=== PATIENT | male | born 1950 | race Caucasian/White ===

== ENCOUNTER 2017-02-09 08:32 | Day surgery (SDC) | payer OTHER, MEDICARE ==
[~2017-02-09] VITALS: Ht 177.8 cm; Wt 118.0 kg
[2017-02-09] VITALS (8 sets, daily range): BP systolic 121–158; BP diastolic 74–82; PULSE 61–86; RESP 18–20; TEMP 97.5–98.7; O2SAT 94–98
[2017-02-09] MEDS ORDERED: METO50TA PO (09:14)
[2017-02-09] MEDS ORDERED: TH GCAP (09:14)
[2017-02-09] MEDS ORDERED: ASPI81TA5 PO (09:14)
[2017-02-09] MEDS ORDERED: CO Q10CA (09:14)
[2017-02-09] MEDS ORDERED: LISI2.5T3 PO (09:14)
[2017-02-09] MEDS ORDERED: ATOR1TAB18 PO (09:14)
[2017-02-09] MEDS ORDERED: METF1000 PO (09:14)
[2017-02-09] MEDS ORDERED: MULT1TAB46 (09:15)
[2017-02-09] MEDS ORDERED: PIOG15TA5 PO (09:15)
[2017-02-09] MEDS ORDERED: CHEL50TA (09:15)
[2017-02-09] MEDS ORDERED: OMEGCAP19 (09:15)
[2017-02-09] MEDS ORDERED: METOPROLOL TARTRATE 25 MG TAB PO PRN (09:30)
[2017-02-09] MEDS ORDERED: CHLORHEXIDINE GLUCONATE 2 % 1 PACK (2 CLOTHS) TOPICAL SCH (09:30)
[2017-02-09] MEDS ORDERED: LACTATED RINGER'S 1000 ML IV PRN (09:30)
[2017-02-09] MEDS ORDERED: VANCOMYCIN 1000 MG/NS 250 ML IV SCH ×2 (09:30)
[2017-02-09] MEDS ORDERED: MUPIROCIN 2% OINT 1 APPLIC/GM SYR NASAL SCH (09:30)
[2017-02-09] MEDS ORDERED: SODIUM CHLORID 0.9% 500 ML IV PRN (09:30)
[2017-02-09] MEDS ORDERED: CHLORHEXIDINE GLUCONATE 2 % 1 PACK (2 CLOTHS) TOPICAL PRN (09:30)
[2017-02-09] MEDS ORDERED: POVIDONE IODINE 5% (ANTISEPSIS KIT) 4 APPLICATIONS EACH NARE PRN (09:30)
[2017-02-09] MEDS ORDERED: SODIUM CHLORID 0.9% 500 ML INJ 500 ML IV SCH (09:30)
[2017-02-09] MEDS ORDERED: POVIDONE IODINE 5% (ANTISEPSIS KIT) 4 APPLICATIONS EACH NARE SCH (09:30)
[2017-02-09] MEDS ORDERED: INSULIN HUMAN REGULAR 1,000 UNITS/10 ML VIAL SQ PRN (09:30)
[2017-02-09] MEDS ORDERED: NS 1000 ML IV SCH (09:30)
[2017-02-09] MEDS ORDERED: ceFAZolin 2 GM PREMIX 50 ML IV SCH (09:30)
[2017-02-09] MEDS ORDERED: LORazepam 1 MG TAB SL SCH (09:30)
[2017-02-09 09:37] LABS: AUTOMATED NEUTROPHIL # 2.4 TH/MM3 (1.8-7.7); BASOPHIL % 0.2 % (0.0-2.0); EOSINOPHIL % 0.8 % (0.0-4.0); HEMATOCRIT 38.7 % (39.0-51.0); HEMO FLAGS DIFF FINAL; LYMPH % 53.1 % (9.0-44.0); MEAN CELL VOLUME 95.3 FL (80.0-100.0); MEAN CORPUSCULAR HEMOGLOBIN 32.5 PG (27.0-34.0); MEAN CORPUSCULAR HGB CONC 34.1 % (32.0-36.0); MONO % 4.1 % (0.0-8.0); NEUT % 41.8 % (16.0-70.0); PLATELET COUNT 123 TH/MM3 (150-450); RED BLOOD COUNT 4.06 MIL/MM3 (4.50-5.90); RED CELL DISTRIBUTION WIDTH 14.7 % (11.6-17.2); WHITE BLOOD COUNT 5.7 TH/MM3 (4.0-11.0)
[2017-02-09 09:56] LABS: BICARBONATE 24.3 MEQ/L (21.0-32.0); POTASSIUM 3.7 MEQ/L (3.5-5.1)
[2017-02-09 11:00] LABS: APTT (PATIENT) 25.7 SEC (24.3-30.1); PROTHROMBIN TIME - PATIENT 11.1 SEC (9.8-11.6)
[2017-02-09] MEDS ORDERED: SODIUM CHLOR 0.9% 250 ML INJ 250 ML ONE (15:00)
[2017-02-09] MEDS ORDERED: ISOPROTERENOL HCL 1 MG/5 ML AMP ONE (15:00)
[2017-02-09] MEDS ORDERED: VANCOMYCIN 500 MG VIAL ONE (15:20)
[2017-02-09] MEDS ORDERED: VANCOMYCIN HCL 1000 MG VIAL ONE (15:20)
[2017-02-09] MEDS ORDERED: ceFAZolin INJ 1,000 MG VIAL ONE ×2 (15:21→15:23)
[2017-02-09] MEDS ORDERED: LIDOCAINE HCL 2% 50 ML VIAL ONE (15:21)
[2017-02-09] MEDS ORDERED: PROPOFOL 200 MG/20 ML AMP IV ONE (15:39)
--- NOTE | 2017-02-09 16:19 | CATHPROC ---
Daily Secret HIS Report Study Information Study Number Admission Scheduled Start Study Start 1028-17 02/09/2017 02/09/2017 Feb 09 2017 2:00PM Referring Institution Admit Source Facility Department 1 Other [facility] Returned Item Clerk Physician and Clinical Staff Initial Joan Fatima Eligibility Consultant Florence Villalobos,RT(R) TECH2 Other Anesthesia, POOL MANAGER Recorder Almita Mancini,RN Recorder Logan Nguyen,RT(R) Scrub Nalini Glover,MEDICAL AND SCIENTIFIC ILLUSTRATOR TECH2 Procedures Performed Procedure Lead Insertion Equipment Time Lunchroom Supervisor Description Size Mfg Part Number Used/Scraped DERMABOND, ADHESIVE SKIN [id number] 15:29 CORDIS/PACER * Used GLUE MINI *[id number] 15:29 MEDLINE IND[employer] SUTURE, STRIP PLUS 1/2" * Used *[id number] 15:29 MEDLINE PACER BECKHAM, LIMB * 2530 Used [id number] 15:29 MEDLINE PACER PACK, PACER CUSTOM * Used *[id number] 15:29 [employer] PACER SAFE SHEATH, FR7, 13CM FR 7 [id number] Used 15:29 [employer] PACER SAFE SHEATH, FR7, 13CM FR 7 [id number] Used 15:32 Needle Sponge Count 2 22 Used 15:32 Needle Sponge Count 20 200 Used 15:32 Needle Sponge Count 3 3 Used SUTURE, 0 ETHIBOND [CT1] (CX21D), 8pk SUTURE, 2-0 VICRYL [CT1] ([id number]) SUTURE, 2-0 VICRYL [CT1] ([id number]) [id number] 15:29 [employer],WARM AIR CCL * Used *[id number] [facility] PAD, ELECTROSURGICAL 15:29 * [id number] Used SURGICAL GROUNDING ORANGE LEAD, CAPSURE FIX NOVUS, 4076-52CM 15:49 VITATRON [employer] 52CM Used 52CM *[id number] LEAD, CAPSURE FIX NOVUS, 4076-58CM 15:46 VITATRON [employer] 58CM Used 58CM *[id number] PACEMAKER, ADVISA MRI 15:53 VIT[employer]RON [employer] OEA-DDDR [id number] Used SURESCAN 15:29 [employer]AH. ELECTRODE, PRO-PADZ BIPHASIC * [id number] Used Equipment Model, Serial, Lot Number and Expiration Data Description Model Number Serial Number Lot Number Expiration Date LEAD, CAPSURE FIX NOVUS, 52CM 4076-52 [id number] 10-23-2018 LEAD, CAPSURE FIX NOVUS, 58CM 4076-58 [id number] 06-12-2017 PACEMAKER, ADVISA DR GRIFFITH [id number] 06-26-2018 SURESCAN Medication Medication Total Dose (Bolus/Oral) Medication Total Dosage/Unit 2% XYLOCAINE 50 mL Medications (Bolus/Oral) Medication Time Given Dosage/Unit Administered By Reason 2% XYLOCAINE 02/09/2017 3:40:00 PM 50 mL Joan Hernandez 50 mL 2% XYLOCAINE given in lab by Joan Hernandez in Left upper chest via Subcutaneous. Ordered by Joan Gibbs. Medication (Drip) Medication Time Given Dosage/Unit Concentration/Unit Diluent (ml) Solution ANCEF 02/09/2017 3:25:26 PM 1 g 1 g ANCEF given in lab by Anesthesia, POOL MANAGER via Peripheral IV. Ordered by Joan Hernandez. Reason: As pe r physicians verbal order. VANCOMYCIN DRIP 02/09/2017 3:23:38 PM 1 g 1 g VANCOMYCIN DRIP given by Anesthesia, POOL MANAGER via Peripheral IV. Ordered by Joan Hernandez. Reason: As per physicians verbal order. Final Case Assessment Cardiovascular HR Rhythm NIBP Chest Pain 89 evp managing director 164/74 0 Edema Present Skin color Skin None Normal Warm Dry Circulatory - Right Pulses Dorsalis Pedis 3 Scale (0,1,2,3,4,d) Circulatory - Left Pulses Dorsalis Pedis 3 Scale (0,1,2,3,4,d) Circulatory - Lower Extremities Color Lower Right Color Lower Left Normal Normal Neurological State Oriented to time-place- Alert Moves all extremities person Respiration - General Respiration Rate SpO2 (%) (B/min) 20 98 Chronological Log Time Study Chronological Log 15:15:29 Anesthesia remains at bedside. Assuming care of patient. 15:15:40 NOTE: This patient is undergoing an additional procedure while still in the Cardiac Cath L ab. 15:15:49 Ep study finished and setting up for PM 15:17:10 Disposable Defibrillator Pads Remain On Patient. 15:17:11 Bovie ground pad applied to:right hip 15:17:20 2% CHLORHEXIDINE GLUCONATE WASH AND NASAL SWIPE DONE PRIOR TO PROCEDURE. 1 g VANCOMYCIN DRIP given by Anesthesia, POOL MANAGER via Peripheral IV. Ordered by Joan Hernandez. Reas on: As per 15:23:38 physicians verbal order. 1 g ANCEF given in lab by Anesthesia, POOL MANAGER via Peripheral IV. Ordered by Joan Hernandez. Reason: As per physicians 15:25:26 verbal order. First Sponge And Instrument Count Done by Nalini Glover, MEDICAL AND SCIENTIFIC ILLUSTRATOR TECH2. 15:26:50 Hypo's: 3, Sponges: 20, Bovie/scratch: 2 Sutures: 10, Blades: 1, Instruments: 26, Syveck Patches: 0 Verified w DB. Time Out. Correct patient, procedure, procedure equipment, site and side verified with physicia n present. Time 15:39:00 concurred by MD, individual staff and POOL MANAGER. Time Out #2 - Consents verified, patient in correct position, all results are labled and displa yed, safety precautions 15:39:24 taken, antibiotics administered. Time out concurred by MD, individual staff and POOL MANAGER in procedu re 15:39:40 Case Start 15:40:00 50 mL 2% XYLOCAINE given in lab by Joan Hernandez in Left upper chest via Subcutaneous. Orde red by Joan Hernandez. 15:40:17 Reference ECG taken 15:42:15 Vascular access was obtained in the Subclav Vein (Lft.) 15:44:00 Wire inserted 15:45:06 Surgical Incision Made. 15:47:18 A pocket was created at the L Upper Chest. 15:47:30 A SAFE SHEATH, FR7, 13CM FR 7 was advanced into the Subclav. Vein Lft using the Modified Se zacarias technique. 15:49:28 A LEAD, CAPSURE FIX NOVUS, 58CM 58CM was inserted and positioned in the RV. 15:49:40 Lead placement verified under fluoroscopy 15:49:45 The RV lead impedance and threshold being tested. 15:49:56 The RV lead was sutured to the fascia. 15:50:21 A SAFE SHEATH, FR7, 13CM FR 7 was advanced into the Subclav. Vein (Lft using the Modified Heron reynoso technique. 15:51:55 A LEAD, CAPSURE FIX NOVUS, 52CM 52CM was inserted and positioned in the RA. 15:52:03 Lead placement verified under fluoroscopy 15:52:15 The Atrial lead impedance and threshold is being tested. 15:54:01 The Atrial lead was sutured to the fascia. 15:58:48 Pocket flushed with antibiotic solution 16:01:49 A PACEMAKER, APRYL CHENA-DDDR was connected and placed in the pocket. Second Sponge And Instrument Count Done by Nalini Glover, MEDICAL AND SCIENTIFIC ILLUSTRATOR TECH2. 16:03:32 Hypo's: 3, Sponges: 20, Bovie/scratch: 2 Sutures: 10, Blades: 1, Instruments: 26, Syveck Patches: 0 Verified w DB. 16:09:46 The pocket was closed. Final Sponge And Instrument Count Done by Nalini Glover, MEDICAL AND SCIENTIFIC ILLUSTRATOR TECH2. 16:09:59 Hypo's: 3, Sponges: 20, Bovie/scratch: 2 Sutures: 10, Blades: 1, Instruments: 26, Syveck Patches: 0 Verified w DB. 16:10:27 Implant Procedure was performed. 16:10:31 A PPM Implant . (Dual) 16:11:08 Steri-strips and a sterile dressing applied to site. 16:11:44 DOCU called. Spoke to ABIDA. 16:11:57 Bedside Report will be given. 16:11:59 Case End 16:12:07 A sling was placed on the affected arm. 16:12:18 Sheath(s) to groins left in place, sutured, 0.9ns kvo connected and will be removed in [facility] 16:12:45 No case complications noted. 16:12:46 Cine recording checked. Assessment: Final Case, HR=89 BPM, Rhythm=evp managing director, KNYW=812/74 mmhg, Chest Pain=0, Edema=None, [place] r=Normal, Skin = Warm, Dry Right Pulses: Tim Ped=3 Left Pulses: Tim Ped=3 16:14:35 Lower Right Extremities: Color=Normal Lower Left Extremities: Color=Normal Neurological: State=Alert, Ox3, WOO Respiration: Resp=20 B/min, SpO2=98 % 16:18:48 CICU called. Spoke to Esha. Aware of sheaths present Edda bass for sheath pull. 16:19:16 Bedside Report will be given. 16:20:51 Patient moved to stretcher End Study - Contrast Media Used In Study Contrast Total Opened (mL) Total Used (mL) Total Wasted (mL) Unspecified 0 0 0 End Study - Radiation Exposure Fluoro Time (minutes) 5.7 End Study - Patient Disposition Complications Transferred To Interventional Outcome No Telemetry Bed successful
--- NOTE | 2017-02-09 16:40 | PD.CARD ---
DUAL PPM IMPLANTATION PROCEDURE DATE: February 09, 2017 DUAL PPM IMPLANTATION PROCEDURE: Dual chamber permanent pacemaker implantation. INDICATIONS FOR PROCEDURE: Mr. Amezcua is a 66 -year-old male with hx of near syncope, trifascicular block, HV over 94 ms, infraHIs disease who undergo pacer insertion. The risks, the nature and the benefit of the procedure were clearly stated to him . The risks include pneumothorax, cardiac perforation, stroke and even . He understood and agreed to proceed. PROCEDURE As written informed consent was obtained prior to the electrophysiology study, the patient was transferred to the EP lab where he was prepped and draped in the usual sterile fashion. Conscious sedation was initiated and maintained throughout the procedure by the anesthesiologist. Once sedation was verified, the left infraclavicular area was with 2% Xylocaine. Using modified Seldinger technique, the left subclavian vein was cannulated on two occasions and two guidewires were advanced. Then, using a #11 blade scalpel, a 2 cm was made two fingerbreadths below the left clavicle. This incision was then taken down through the deep fascial layer using Bovie cautery and blunt dissection. Into the inferomedial direction, device pocket was dissected, then the wire was dissected into the pocket. A 2-0 Vicryl suture was placed around the wire to prevent backbleeding. At this point, over the lateral wire, an 7-Citizen [place] dilator and introducer was advanced. As the dilator and wire were removed, an active fixation right ventricular pacing and sensing lead was advanced. After adequate pacing and sensing thresholds were obtained, the lead was secured in the pocket using 2-0 Ethibond suture. Then, over the remaining wire, an 7-[place] dilator and introducer was advanced. As the dilator and wire were removed, an active fixation right atrial pacing and sensing lead was advanced. After adequate pacing and sensing thresholds were obtained, the lead was secured into the pocket using 2-0 Ethibond suture. At that point, the pocket was copiously irrigated using antibiotic solution. This was connected to the generator and placed into the pocket. I did proceed with wound closure. The deep fascial layer was approximated using 2-0 Vicryl suture in a continuous fashion. The subcutaneous layer was approximated with 2-0 Vicryl suture in a continuous fashion. The subcuticular layer was approximated with 2-0 Vicryl suture in a continuous fashion. Dermabond adhesive was applied to the wound followed by sterile pressure dressing. There was no complication. The patient tolerated procedure. Blood loss minimal. IMPLANTED HARDWARE The permanent pacemaker is a Medtronic. Model # A2DR01 serial number [id number]. The right atrial pacing and sensing lead is a Medtronic model number 4076-52, serial number [id number]. The right ventricular pacing and sensing lead is a Medtronic model number 4076- 58, serial number [id number]. THRESHOLDS The right atrial pacing threshold in the bipolar mode was 1.1 @ 0.4 milliseconds, lead impedance 645 ohms and P-wave at 1.2 millivolts. The right ventricular pacing threshold in the bipolar mode was 1.3V @ 0.4 milliseconds, lead impedance 1280 ohms and R-wave at the 8.0 millivolts. SETTINGS The device was set in the DDD50, upper limit 120 beats per minute. Hysteresis and mode switch are on. CONCLUSIONS: Successful permanent pacemaker implantation, COMMENT AND RECOMMENDATION The patient will be transferred to the telemetry unit. He will be observed. When stable, he can be discharged home. Joan Hernandez MD February 09, 2017 16:40
--- NOTE | 2017-02-09 18:22 | MA ---
cc: KEVIN WALKER M.D. DATE: 02/09/2017 Electrophysiology study, CS cannulation, repeat electrophysiology study on Isuprel infusion. INDICATION Mr. Amezcua is a 66-year-old gentleman, trifascicular block, episode of near syncope, referred for electrophysiology study and possible device insertion. The risks, the nature and the benefit of the procedure are clearly stated to him. The risks include pneumothorax, cardiac perforation, stroke, need for open heart surgery and even . He understood and agreed to proceed. PROCEDURE DETAILS After written informed consent was obtained, the patient was brought to the EP lab where he was prepped and draped in the usual sterile fashion. Conscious sedation was initiated and maintained throughout the procedure by anesthesiologist. Once sedation verified, the right inguinal area was anesthetized with 2% Xylocaine. Using modified Seldinger technique, the right femoral vein was cannulated on four occasions and four guidewires were advanced. Over the wires three 5 and a 6-Bulgarian Hemaquet were advanced. Then under fluoroscopic guidance through the 5 and 6-Bulgarian Hemaquets, four 5-Bulgarian Jacek curved quadripolar electrophysiology catheters were advanced and positioned on the His, upper right atrium, coronary sinus and right ventricular apex. Basic interval was measured. HV was around 94 sometime 96 milliseconds. It was prolonged. There was infra His disease. Then atrial pacing protocol was performed. Wenckebach was around 550 milliseconds. Then ventricular pacing protocol was performed. There was VA conduction. No tachyarrhythmia was induced. Then Isuprel was initiated. Atrial pacing protocol was repeated again, no tachyarrhythmia was induced. At that point the procedure was complete. All catheters removed. The patient has trifascicular block, HV around 94-96 milliseconds. He has near-syncope. 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 He will need a pacemaker. He is a class I indication. The patient's case already discussed with the patient before EP study. IMPRESSION 1. Electrocardiogram. At baseline the patient was in sinus. Postprocedure electrocardiogram was unchanged. 2. Basic interval. Basic cycle length was around 780, AH was around 80 and HV was around 94-96 milliseconds. 3. Atrial pacing protocol. Wenckebach of the node at baseline was around 550 milliseconds. 4. No tachyarrhythmia was induced. 5. Ventricular pacing protocol. No tachyarrhythmia was induced. CONCLUSION 1. 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 2. Negative electrophysiology study for supra and ventricular tachyarrhythmia. COMMENT AND RECOMMENDATIONS As mentioned before the patient is going to be kept on the table and a dual-chamber permanent pacemaker will be implanted. MD DREW Gregory/LORRAINE /4:44 PM /6:12 PM
[2017-02-09] MEDS ORDERED: oxyCODONE/ACETAMINOPHEN 5 MG/325 MG TAB PO PRN ×2 (18:45)
[2017-02-09] MEDS ORDERED: LIDOCAINE HCL 1% 50 ML VIAL INFIL PRN (18:45)
[2017-02-09] MEDS ORDERED: ONDANSETRON HCL 4 MG/2 ML VIAL IV PRN (18:45)
[2017-02-09] MEDS ORDERED: ATROPINE SULFATE 1 MG/ML VIAL IV PRN (18:45)
[2017-02-09] MEDS ORDERED: METOCLOPRAMIDE HCL 10 MG/2 ML VIAL IV PRN (18:45)
[2017-02-09] MEDS ORDERED: SODIUM CHLOR 0.9% 250 ML INJ 250 ML IV PRN (18:45)
[2017-02-09] MEDS ORDERED: LORazepam 2 MG/ML VIAL IV PRN (18:45)
[2017-02-09] MEDS ORDERED: BACITRACIN OINT 0.9 GM PKT TOP ONE (18:45)
--- NOTE | 2017-02-09 20:04 | RADRPT ---
EXAM DATE/TIME: 02/09/2017 19:27 [place] COMPARISON: No previous studies available for comparison. INDICATIONS : Status post pacemaker MEDICAL HISTORY : Hypertension. Diabetes. SURGICAL HISTORY : Coronary artery stent. Pacemaker. ENCOUNTER: Initial ACUITY: 1 day PAIN SCORE: 3/10 LOCATION: Bilateral chest FINDINGS: A single portable frontal view of the chest shows a left-sided pacing device. Leads are somewhat obsc ured by the penetration of the film. They are felt to terminate in the region of the right atrium and right ventricle respectively. No pneumothorax. Heart is normal in size. No infiltrate or effusion. CONCLUSION: Left-sided pacing device. No pneumothorax. Van Parham Jr., MD on February 09, 2017 at 20:01 Board Certified Radiologist. This report was verified electronically.
[2017-02-09] MEDS ORDERED: ATORVASTATIN 80 MG TAB PO SCH (21:00)
[2017-02-10] VITALS (10 sets, daily range): BP systolic 124–129; BP diastolic 65–88; PULSE 62–80; RESP 18; TEMP 97.9–98.1; O2SAT 94
[2017-02-10] MEDS: ceFAZolin 2 GM PREMIX 50 ML IV SCH ×2 (00:17→08:00)
[2017-02-10 06:44] LABS: APTT (PATIENT) 26.4 SEC (24.3-30.1)
[2017-02-10] MEDS ORDERED: CEPH-459 PO (07:51)
[2017-02-10] MEDS ORDERED: LISI10TA3 PO (07:51)
[2017-02-10] MEDS ORDERED: METO-309 PO (07:51)
--- NOTE | 2017-02-10 08:03 | PD.CARD.PN ---
Subjective Subjective Remarks Feels okay. Objective Medications Current Medications Medications (Trade) Dose Ordered Sig/Yogi Route Start Time Stop Time Status Last Admin Lactated Ringer's 1,000 ml @ 30 mls/hr Q24H PRN IV 02/09/17 09:30 02/12/17 09:29 Sodium Chloride 500 ml @ 30 mls/hr [id number] PRN IV 02/09/17 09:30 02/12/17 09:29 Sodium Chloride 500 ml @ 30 mls/hr [id number] IV 02/09/17 09:30 (NS 1000 ml Inj) 1,000 ml @ 30 mls/hr Q24H IV 02/09/17 09:30 (Percocet 5-325 Mg) 1 tab Q4H PRN PO 02/09/17 18:45 02/09/17 21:16 (Percocet 5-325 Mg) 2 tab Q4H PRN PO 02/09/17 18:45 (Ativan Inj) 0.5 mg UNSCH PRN IV 02/09/17 18:45 02/10/17 18:44 Atropine Sulfate 0.5 mg 0.5 mg UNSCH PRN IV 02/09/17 18:45 (NS 250 ml Inj) 250 ml @ 500 mls/hr ONCE PRN IV 02/09/17 18:45 02/10/17 18:44 (Reglan Inj) 10 mg Q4H PRN IV 02/09/17 18:45 (Zofran Inj) 4 mg Q4H PRN IV 02/09/17 18:45 Lidocaine HCl 10 ml 10 ml UNSCH PRN INFIL 02/09/17 18:45 02/10/17 18:44 (Ancef 2 Gm Premix) 50 ml @ 100 mls/hr Q8H IV 02/10/17 00:00 02/10/17 16:29 02/10/17 00:17 (Ecotrin Ec) 81 mg DAILY PO 02/10/17 09:00 (Lipitor) 80 mg HS PO 02/09/17 21:00 02/09/17 21:16 (Glucophage) 1,000 mg DAILY PO 02/10/17 09:00 (Actos) 15 mg DAILY PO 02/10/17 09:00 (Lopressor) 100 mg DAILY PO 02/10/17 09:00 (Prinivil) 10 mg DAILY PO 02/10/17 09:00 Vital Signs / I&O Vital Signs Date Time Temp Pulse Resp B/P Pulse Ox O2 Delivery O2 Flow Rate FiO2 02/10/17 05:04 70 02/10/17 04:00 75 02/10/17 03:00 98.1 76 18 129/65 94 02/10/17 03:00 62 02/10/17 02:00 80 02/10/17 01:19 66 02/10/17 00:00 70 02/09/17 23:00 98.6 69 18 156/74 94 02/09/17 23:00 62 02/09/17 22:58 18 02/09/17 22:00 64 02/09/17 21:00 86 02/09/17 20:00 66 02/09/17 19:00 98.3 68 20 151/80 96 02/09/17 19:00 68 02/09/17 18:00 71 02/09/17 17:51 97.5 69 18 121/81 98 02/09/17 17:51 61 02/09/17 09:12 98.7 63 18 158/82 96 I/O 02/09/17 02/09/17 02/09/17 02/10/17 02/10/17 02/10/17 07:00 15:00 23:00 07:00 15:00 23:00 Intake Total 530 ml Output Total 450 ml Balance 80 ml Intake Oral 480 ml IV Total 50 ml Output Urine Total 450 ml # Voids 1 Physical Exam GENERAL: Well-nourished, well-developed patient. SKIN: Warm and dry. Incision clean, dry and intact. HEAD: Normocephalic. EYES: No scleral icterus. No injection or drainage. NECK: Supple, trachea midline. No JVD or lymphadenopathy. CARDIOVASCULAR: Regular rate and rhythm without murmurs, gallops, or rubs. RESPIRATORY: Breath sounds equal bilaterally. No accessory muscle use. GASTROINTESTINAL: Abdomen soft, non-tender, nondistended. EXTREMITIES: No cyanosis, or edema. NEUROLOGICAL: Awake, alert, and oriented x 3. Non-focal. Laboratory Laboratory Tests Test 02/09/17 02/09/17 02/10/17 09:15 09:50 05:19 White Blood Count 5.7 TH/MM3 Red Blood Count 4.06 MIL/MM3 Hemoglobin 13.2 GM/DL Hematocrit 38.7 % Mean Corpuscular Volume 95.3 FL Mean Corpuscular Hemoglobin 32.5 PG Mean Corpuscular Hemoglobin 34.1 % Concent Red Cell Distribution Width 14.7 % Platelet Count 123 TH/MM3 Mean Platelet Volume 7.8 FL Neutrophils (%) (Auto) 41.8 % Lymphocytes (%) (Auto) 53.1 % Monocytes (%) (Auto) 4.1 % Eosinophils (%) (Auto) 0.8 % Basophils (%) (Auto) 0.2 % Neutrophils # (Auto) 2.4 TH/MM3 Lymphocytes # (Auto) 3.0 TH/MM3 Monocytes # (Auto) 0.2 TH/MM3 Eosinophils # (Auto) 0.0 TH/MM3 Basophils # (Auto) 0.0 TH/MM3 CBC Comment DIFF FINAL Differential Comment Sodium Level 142 MEQ/L Potassium Level 3.7 MEQ/L Chloride Level 106 MEQ/L Carbon Dioxide Level 24.3 MEQ/L Anion Gap 12 MEQ/L Blood Urea Nitrogen 16 MG/DL Creatinine 1.03 MG/DL Estimat Glomerular Filtration 72 ML/MIN Rate Random Glucose 126 MG/DL Calcium Level 9.1 MG/DL Blood Type O POSITIVE Antibody Screen NEGATIVE Blood Bank Comment Prothrombin Time 11.1 SEC 11.0 SEC Prothromb Time International 1.0 RATIO 1.0 RATIO Ratio Activated Partial 25.7 SEC 26.4 SEC Thromboplast Time Imaging Last Impressions Chest X-Ray 02/09/17 0000 Signed Impressions: Service Date/Time: Thursday, February 09, 2017 19:27 - CONCLUSION: Left-sided pacing device. No pneumothorax. Van Parham Jr., MD Assessment and Plan Problem List: (1) Bradycardia Assessment and Plan: Symptomatic with positive EPS. (2) S/P cardiac pacemaker procedure Assessment and Plan: Pacing appropriately, CXR negative for pneumothorax. Incision stable. Discharge home, follow-up with Dr. WALKER in 2 weeks per my discussion with him. Becky Vasques February 10, 2017 08:03
--- NOTE | 2017-02-10 08:55 | EKG ---
Date Performed: 02/10/2017 Time Performed: 00:29:46 PTAGE: 66 years EKG: Sinus rhythm with 1st degree A-V block Left axis deviation RBBB with left anterior fascicular block Anterior infa rct - age undetermined Abnormal ECG PREVIOUS TRACING : 02/09/2017 20.18 DOCTOR: Kane Woodard Interpretating Date/Time 02/10/2017 08:53:27
[2017-02-10] MEDS ORDERED: NON-FORMULARY DRUG (Lisinopril 2.5 MG) PO SCH (09:00)
[2017-02-10] MEDS ORDERED: METOPROLOL TARTRATE 50 MG TAB PO SCH ×2 (09:00)
[2017-02-10] MEDS ORDERED: ASPIRIN EC 81 MG TABEC PO SCH (09:00)
[2017-02-10] MEDS ORDERED: metFORMIN HCL 500 MG TAB PO SCH (09:00)
[2017-02-10] MEDS ORDERED: LISINOPRIL 10 MG TAB PO SCH (09:00)
[2017-02-10] MEDS ORDERED: PIOGLITAZONE HCL 15 MG TAB PO SCH (09:00)
--- NOTE | 2017-02-10 09:16 | EKG ---
Date Performed: 02/09/2017 Time Performed: 20:18:22 PTAGE: 66 years EKG: Sinus rhythm Left axis deviation Left bundle branch block Possible inferior infarct - age undetermined Abnormal E CG PREVIOUS TRACING : 02/09/2017 09.28 DOCTOR: Kane Woodard Interpretating Date/Time 02/10/2017 09:14:35
--- NOTE | 2017-02-10 09:45 | EKG ---
Date Performed: 02/09/2017 Time Performed: 09:28:02 PTAGE: 66 years EKG: Sinus rhythm . Left axis deviation RBBB with left anterior fascicular block Inferior and lateral ST elevation - po ssible early repolarization Abnormal ECG NO PREVIOUS TRACING DOCTOR: Kane Woodard Interpretating Date/Time 02/10/2017 09:43:48
--- NOTE | 2017-02-11 08:20 | CATHPROC ---
Access Mobile HIS Report Study Information Study Number Admission Scheduled Start Study Start 1028-17 02/09/2017 02/09/2017 Feb 09 2017 2:00PM Referring Institution Admit Source Facility Department 1 Other [facility] Supervisor Instrument Repair Physician and Clinical Staff Initial Joan Fatima Round Up Ring Hand Florence Villalobos,RT(R) TECH2 Other Anesthesia, SUPERVISOR GROUNDS Recorder Almita Mancini,RN Recorder Logan Nguyen,RT(R) Scrub Nalini Glover,CYBER SOFTWARE ENGINEER TECH2 Procedures Performed Procedure Lead Insertion Equipment Time Can Crimper Description Size Mfg Part Number Used/Scraped DERMABOND, ADHESIVE SKIN [id number] 15:29 CORDIS/PACER * Used GLUE MINI *[id number] 15:29 MEDLINE INDUSTRIES SUTURE, STRIP PLUS 1/2" * Used *[id number] 15:29 MEDLINE PACER BECKHAM, LIMB * 2530 *[id number] Used [id number] 15:29 MEDLINE PACER PACK, PACER CUSTOM * Used *[id number] 15:29 Revivn PACER SAFE SHEATH, FR7, 13CM FR 7 [id number] Used 15:29 Revivn PACER SAFE SHEATH, FR7, 13CM FR 7 [id number] Used 15:32 Needle Sponge Count 2 22 Used 15:32 Needle Sponge Count 20 200 Used 15:32 Needle Sponge Count 3 3 Used SUTURE, 0 ETHIBOND [CT1] (CX21D), 8pk SUTURE, 2-0 VICRYL [CT1] (TCH162D) SUTURE, 2-0 VICRYL [CT1] (HNV257C) [id number] 15:29 [employer],WARM AIR CCL * Used *[id number] [facility] PAD, ELECTROSURGICAL 15:29 * [id number] *[id number] Used SURGICAL GROUNDING ORANGE LEAD, CAPSURE FIX NOVUS, 4076-52CM 15:49 VITATRON [employer] 52CM Used 52CM *[id number] LEAD, CAPSURE FIX NOVUS, 4076-58CM 15:46 VITATRON MEDTRON[employer] 58CM Used 58CM *[id number] PACEMAKER, ADVISA DR MRI 15:53 VITATRON [employer] OEA-DDDR [id number] Used [employer] DevelopmentSCAN [id number] 15:29 [employer] LEAH. ELECTRODE, PRO-PADZ BIPHASIC * Used *[id number] Equipment Model, Serial, Lot Number and Expiration Data Description Model Number Serial Number Lot Number Expiration Date LEAD, CAPSURE FIX NOVUS, 52CM 4076-52 [id number] 10-23-2018 LEAD, CAPSURE FIX NOVUS, 58CM 4076-58 [id number] 06-12-2017 PACEMAKER, ADVISA DR GRIFFITH [id number] 06-26-2018 SURESCAN Medication Medication Total Dose (Bolus/Oral) Medication Total Dosage/Unit 2% XYLOCAINE 50 mL Medications (Bolus/Oral) Medication Time Given Dosage/Unit Administered By Reason 2% XYLOCAINE 02/09/2017 3:40:00 PM 50 mL Joan Hernandez 50 mL 2% XYLOCAINE given in lab by Joan Hernandez in Left upper chest via Subcutaneous. Ordered by Joan Gibbs. Medication (Drip) Medication Time Given Dosage/Unit Concentration/Unit Diluent (ml) Solution ANCEF 02/09/2017 3:25:26 PM 1 g 1 g ANCEF given in lab by Anesthesia, SUPERVISOR GROUNDS via Peripheral IV. Ordered by Joan Hernandez. Reason: As pe r physicians verbal order. VANCOMYCIN DRIP 02/09/2017 3:23:38 PM 1 g 1 g VANCOMYCIN DRIP given by Anesthesia, SUPERVISOR GROUNDS via Peripheral IV. Ordered by Joan Hernandez. Reason: As per physicians verbal order. Final Case Assessment Cardiovascular HR Rhythm NIBP Chest Pain 89 vp ad sales west 164/74 0 Edema Present Skin color Skin None Normal Warm Dry Circulatory - Right Pulses Dorsalis Pedis 3 Scale (0,1,2,3,4,d) Circulatory - Left Pulses Dorsalis Pedis 3 Scale (0,1,2,3,4,d) Circulatory - Lower Extremities Color Lower Right Color Lower Left Normal Normal Neurological State Oriented to time-place- Alert Moves all extremities person Respiration - General Respiration Rate SpO2 (%) (B/min) 20 98 Chronological Log Time Study Chronological Log 15:15:29 Anesthesia remains at bedside. Assuming care of patient. 15:15:40 NOTE: This patient is undergoing an additional procedure while still in the Cardiac Cath L ab. 15:15:49 Ep study finished and setting up for PM 15:17:10 Disposable Defibrillator Pads Remain On Patient. 15:17:11 Bovie ground pad applied to:right hip 15:17:20 2% CHLORHEXIDINE GLUCONATE WASH AND NASAL SWIPE DONE PRIOR TO PROCEDURE. 1 g VANCOMYCIN DRIP given by Anesthesia, SUPERVISOR GROUNDS via Peripheral IV. Ordered by Joan Hernandez. Reas on: As per 15:23:38 physicians verbal order. 1 g ANCEF given in lab by Anesthesia, SUPERVISOR GROUNDS via Peripheral IV. Ordered by Joan Hernandez. Reason: As per physicians 15:25:26 verbal order. First Sponge And Instrument Count Done by Nalini Glover, CYBER SOFTWARE ENGINEER TECH2. 15:26:50 Hypo's: 3, Sponges: 20, Bovie/scratch: 2 Sutures: 10, Blades: 1, Instruments: 26, Syveck Patches: 0 Verified w DB. Time Out. Correct patient, procedure, procedure equipment, site and side verified with physicia n present. Time 15:39:00 concurred by MD, individual staff and SUPERVISOR GROUNDS. Time Out #2 - Consents verified, patient in correct position, all results are labled and displa yed, safety precautions 15:39:24 taken, antibiotics administered. Time out concurred by MD, individual staff and SUPERVISOR GROUNDS in procedu re 15:39:40 Case Start 15:40:00 50 mL 2% XYLOCAINE given in lab by Joan Hernandez in Left upper chest via Subcutaneous. Orde red by Joan Hernandez. 15:40:17 Reference ECG taken 15:42:15 Vascular access was obtained in the Subclav Vein (Lft.) 15:44:00 Wire inserted 15:45:06 Surgical Incision Made. 15:47:18 A pocket was created at the L Upper Chest. 15:47:30 A SAFE SHEATH, FR7, 13CM FR 7 was advanced into the Subclav. Vein Lft using the Modified Se zacarias technique. 15:49:28 A LEAD, CAPSURE FIX NOVUS, 58CM 58CM was inserted and positioned in the RV. 15:49:40 Lead placement verified under fluoroscopy 15:49:45 The RV lead impedance and threshold being tested. 15:49:56 The RV lead was sutured to the fascia. 15:50:21 A SAFE SHEATH, FR7, 13CM FR 7 was advanced into the Subclav. Vein (Lft using the Modified Heron reynoso technique. 15:51:55 A LEAD, CAPSURE FIX NOVUS, 52CM 52CM was inserted and positioned in the RA. 15:52:03 Lead placement verified under fluoroscopy 15:52:15 The Atrial lead impedance and threshold is being tested. 15:54:01 The Atrial lead was sutured to the fascia. 15:58:48 Pocket flushed with antibiotic solution 16:01:49 A PACEMAKER, APRYL SANON-DDDR was connected and placed in the pocket. Second Sponge And Instrument Count Done by Nalini Glover, CYBER SOFTWARE ENGINEER TECH2. 16:03:32 Hypo's: 3, Sponges: 20, Bovie/scratch: 2 Sutures: 10, Blades: 1, Instruments: 26, Syveck Patches: 0 Verified w DB. 16:09:46 The pocket was closed. Final Sponge And Instrument Count Done by Nalini Glover, CYBER SOFTWARE ENGINEER TECH2. 16:09:59 Hypo's: 3, Sponges: 20, Bovie/scratch: 2 Sutures: 10, Blades: 1, Instruments: 26, Syveck Patches: 0 Verified w DB. 16:10:27 Implant Procedure was performed. 16:10:31 A PPM Implant . (Dual) 16:11:08 Steri-strips and a sterile dressing applied to site. 16:11:44 DOCU called. Spoke to ABIDA. 16:11:57 Bedside Report will be given. 16:11:59 Case End 16:12:07 A sling was placed on the affected arm. 16:12:18 Sheath(s) to groins left in place, sutured, 0.9ns kvo connected and will be removed in Hol ding Area 16:12:45 No case complications noted. 16:12:46 Cine recording checked. Assessment: Final Case, HR=89 BPM, Rhythm=vp ad sales west, BEFM=223/74 mmhg, Chest Pain=0, Edema=None, Dulce r=Normal, Skin = Warm, Dry Right Pulses: Tim Ped=3 Left Pulses: Tim Ped=3 16:14:35 Lower Right Extremities: Color=Normal Lower Left Extremities: Color=Normal Neurological: State=Alert, Ox3, WOO Respiration: Resp=20 B/min, SpO2=98 % 16:18:48 CICU called. Spoke to Esha. Aware of sheaths present Eddasolitario bass for sheath pull. 16:19:16 Bedside Report will be given. 16:20:51 Patient moved to stretcher End Study - Contrast Media Used In Study Contrast Total Opened (mL) Total Used (mL) Total Wasted (mL) Unspecified 0 0 0 End Study - Radiation Exposure Fluoro Time (minutes) 5.7 End Study - Patient Disposition Complications Transferred To Interventional Outcome No Telemetry Bed successful
== END 2017-02-10 11:00 | disposition home or self-care (01) ==
LOC: HDOC 08:32 → HDIC 08:33 → EDSTATUS 09:30 → HCIS 16:49 → HDOC 02-10 11:00
PROVIDERS: ATTEND Internal Medicine Interventional Cardiology
DX: I44.2 Atrioventricular block, complete (principal); I45.3 Trifascicular block; I25.10 Atherosclerotic heart disease of native coronary artery without angina pectoris; R00.1 Bradycardia, unspecified; I10 Essential (primary) hypertension; I25.2 Old myocardial infarction; E11.59 Type 2 diabetes mellitus with other circulatory complications; R06.02 Shortness of breath; E66.9 Obesity, unspecified; Z68.37 Body mass index [BMI] 37.0-37.9, adult; Z79.82 Long term (current) use of aspirin; Z79.84 Long term (current) use of oral hypoglycemic drugs
CPT/HCPCS: 00530; 33208; 71010; 80048; 85025; 85610; 85730; 86850; 86900; 86901; 93005; 93620; 93623; C1730; C1785; C1898; J0690; J3010; J3370; J7050; J7030